=== PATIENT | female | born 1995 | race African-American/Black ===

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

== ENCOUNTER 2017-05-24 16:17 | Emergency (ER) | payer OTHER ==
[~2017-05-24] VITALS: Ht 154.9 cm; Wt 59.0 kg
[~2017-05-24 16:17] MED LIST changes: +CIPROFLOXACN500 MG PO
[2017-05-24] MEDS ORDERED: NAPROSYN500 MG PO (19:12)
[2017-05-24 19:23] VITALS: BP 103/65
== END 2017-05-24 19:32 | disposition home or self-care (01) | DRG 206 ==
LOC: ED 16:17
DX: M94.0 Chondrocostal junction syndrome [Tietze] (principal); M25.512 Pain in left shoulder; R05 Cough; R07.89 Other chest pain

== ENCOUNTER 2017-10-06 23:11 | Emergency (ER) | payer OTHER ==
[~2017-10-06] VITALS: Ht 154.9 cm; Wt 64.8 kg
[~2017-10-06 23:11] MED LIST changes: +NAPROSYN500 MG PO
--- NOTE | 2017-10-07 | NUR ---
breathing treatment given with the mouth peice. breathing tech. for good deposition to the lungs.
[2017-10-07] MEDS ORDERED: CEPHALEXIN500 MG PO (00:36)
[2017-10-07] MEDS ORDERED: ROBITUSSIN AC10 ML PO (00:36)
[2017-10-07] MEDS ORDERED: FLONASE AL50 MCG/ACT (00:57)
[2017-10-07 01:22] VITALS: BP 130/69
== END 2017-10-07 01:22 | disposition home or self-care (01) | DRG 203 ==
LOC: ED 23:11
DX: J45.901 Unspecified asthma with (acute) exacerbation (principal); R05 Cough; R09.81 Nasal congestion; R52 Pain, unspecified; Z53.20 Procedure and treatment not carried out because of patient's decision for unspecified reasons